=== PATIENT | female | born 1980 | race Caucasian/White ===

== ENCOUNTER → 2016-07-28 | Outpatient (CLI) | payer BC ==
[2016-07-28 11:34] LABS: BASOPHILS # (AUTO) 0.02 10*3/UL; BASOPHILS % (AUTO) 0.3 % (0-1); HEMATOCRIT 42.3 % (37.0-47.0); IMM GRAN % (AUTO) 0.1 % (0-5); IMM GRAN# (AUTO) 0.01 10*3/UL; LYMPHOCYTES # (AUTO) 2.16 10*3/uL; LYMPHOCYTES % (AUTO) 27.5 % (10-50); MEAN CORPUSCULAR HEMOGLOBIN 28.8 PG (27-31); MEAN CORPUSCULAR HGB CONC 33.1 g/dL (33-37); MEAN PLATELET VOLUME 10.8 FL (7.4-12.2); MONOCYTES # (AUTO) 0.76 10*3/UL (0.3-0.8); MONOCYTES % (AUTO) 9.7 % (5-15); NEUTROPHILS # (AUTO) 4.82 10*3/UL; NEUTROPHILS % (AUTO) 61.4 % (50-80); RDW COEFFICIENT OF VARIATION 12.6 % (11.5-14.5); RED BLOOD COUNT 4.86 10^6/uL (4.20-5.40); WHITE BLOOD COUNT 7.85 10^3/uL (4.8-10.8)
[2016-07-28 11:35] LABS: PLATELET MORPHOLOGY COMMENT NORMAL MORPHOLOGY (NORM); PRENATAL QUESTION YES (Y)
[2016-07-28 12:00] LABS: HIV ANTIBODY NEGATIVE (N); HIV-1 P24 ANTIGEN NEGATIVE (N)
[2016-07-30 07:13] LABS: RUBELLA IGG INDEX 1.2 (()); SYPHILIS IGG WITH REFLEX Negative (Negative)
[2016-07-30 07:14] LABS: HEP B SURFACE AG Negative (Negative)
== END ==
LOC: MOB LAB 10:48
PROVIDERS: ATTEND Student in an Organized Health Care Education/Training Program
DX: Z34.81 Encounter for supervision of other normal pregnancy, first trimester (principal)
CPT/HCPCS: 36415; 80081; 86900; 86901; 87088; 87491; 87591

== ENCOUNTER → 2016-08-02 | Outpatient (CLI) | payer BC ==
--- NOTE | 2016-08-02 14:11 | DI ---
History: First trimester evaluation. Procedure performed transvaginally using a high frequency transducer. Findings: A single living intrauterine is identified in variable position due to early gest ational age. Amniotic fluid volume appears adequate. Regarding gestational landmarks, all appear in f airly close agreement including gestational sac diameter, and embryonic pole and yolk sac. Heart rate is 134 beats per minute. Gestational sac diameter is 3.1 cm, 8 weeks 3 days, yolk sac is 3 mm in diameter and the crown-rump l ength is 1.4 cm, 7 week 5 days. Ovaries appear normal. Impression: Single living intrauterine at 7 weeks 5 days by crown-rump length, most accurat e marker. GA by dates 8 weeks 5 days. EDC is 03/09/17
== END ==
LOC: US 09:49
PROVIDERS: ATTEND Student in an Organized Health Care Education/Training Program
DX: Z36 Encounter for antenatal screening of mother (principal); Z34.81 Encounter for supervision of other normal pregnancy, first trimester
CPT/HCPCS: 76817

== ENCOUNTER → 2016-11-01 | Outpatient (CLI) | payer BC ==
--- NOTE | 2016-11-01 10:34 | DI ---
OBSTETRICAL ULTRASOUND, 11/01/2016 8:51 AM: Clinical History: Antepartum screening. Previous Exam: 08/02/2016. ADJUSTED DATE FROM EARLY OBUS: 06/09/2016. There is a single live IUP currently in breech presentation. Amnionic fluid content is normal. activity is observed as follows: Cardiac, extremity, and respiratory. The placenta is posterior corpu s and Grade 1. heart rate is 140 beats/minute and regular. There is a 3 vessel cord. Cord Doppl er ultrasound was performed and this shows diastolic flow with systolic/diastolic ratios of 5.2 and 4 .9, and these values are normal for this stage of . The RVOT, LVOT and 4 chamber heart view are normal. The aortic arch and descending aorta are normal. Views of the spine, face, and kidn eys are unremarkable. BPD, HC, AC, and FL measurements are 52 mm, 196 mm, 169 mm, and 35 mm, respecti vely. These measurements correspond to EGA values of 21 weeks 6 days, 21 weeks 6 days, 22 weeks 0 day s and 21 weeks 1 day, respectively. Composite EGA is 21 weeks 5 days. The US EDC is 03/09/2017. EDC by adjusted LMP is 03/16/2017. Readin. Single live fetus with breech presentation and normal amniotic fluid content. Placenta is posteri or corpus and grade 1. 2. The composite EGA is 21 weeks 5 days with an ultrasound EDC of 03/09/2017. EDC by the chest at LMP date of 06/09/2016 would be 03/16/2017. 3. anatomic survey is normal. The technologist did perform cord Doppler ultrasound because of the short femur length and cord Doppler ultrasound measurements are normal for this stage of pregnanc y.
== END ==
LOC: US 08:46
PROVIDERS: ATTEND Student in an Organized Health Care Education/Training Program
DX: Z36 Encounter for antenatal screening of mother (principal); Z3A.20 20 weeks gestation of pregnancy
CPT/HCPCS: 76805

== ENCOUNTER → 2016-11-27 | Outpatient (CLI) | payer BC ==
[2016-11-27 15:00] LABS: HEMATOCRIT 38.1 % (37.0-47.0); HEMOGLOBIN 12.4 g/dL (12.0-16.0); MEAN CORPUSCULAR HEMOGLOBIN 29.2 PG (27-31); MEAN CORPUSCULAR HGB CONC 32.5 g/dL (33-37); MEAN CORPUSCULAR VOLUME 89.9 FL (81-99); MEAN PLATELET VOLUME 11.1 FL (7.4-12.2); RED BLOOD COUNT 4.24 10^6/uL (4.20-5.40)
== END ==
LOC: LAB 08:40
PROVIDERS: ATTEND Student in an Organized Health Care Education/Training Program
DX: Z36 Encounter for antenatal screening of mother (principal); Z3A.25 25 weeks gestation of pregnancy
CPT/HCPCS: 36415; 82950; 85027

== ENCOUNTER → 2017-02-12 | Outpatient (CLI) | payer BC | LOC: MOB LAB 15:37 | PROVIDERS: ATTEND Obstetrics & Gynecology | DX: Z36 Encounter for antenatal screening of mother (principal); Z3A.36 36 weeks gestation of pregnancy | CPT/HCPCS: 87150 ==

== ENCOUNTER → 2017-02-28 | Outpatient (CLI) | payer BC | LOC: MOB LAB 09:25 | PROVIDERS: ATTEND Student in an Organized Health Care Education/Training Program | DX: O12.13 Gestational proteinuria, third trimester (principal); Z3A.38 38 weeks gestation of pregnancy | CPT/HCPCS: 82565; 84156 ==

== ENCOUNTER 2017-03-09 21:55 | Inpatient (IN) | payer BC ==
[2017-03-09] MEDS ORDERED: ONDANSETRON 4 MG/2 ML VIAL ONE (21:58)
[2017-03-09] MEDS: ONDANSETRON 4 MG/2 ML VIAL IVP PRN (22:07)
[2017-03-09] MEDS ORDERED: fentaNYL Inj 100 MCG/2 ML VIAL ONE (22:09)
[2017-03-09] MEDS ORDERED: Lactated Ringers 1,000 ML PRIMARY IV ONE ×2 (22:14→22:31)
[2017-03-09] MEDS ORDERED: Oxytocin 20 Units + LR 1,000 ML IV ONE (22:14)
[2017-03-09] MEDS ORDERED: CITRIC ACID/SODIUM CITRATE 30 ML CUP PO PRN (22:16)
[2017-03-09] MEDS ORDERED: Nalbuphine Inj 20 MG/ML Ampule IVP PRN (22:16)
[2017-03-09] MEDS ORDERED: LIDOCAINE W/ SODIUM BICARB 0.5 ML SYR SUBD PRN (22:16)
[2017-03-09] MEDS ORDERED: BUTORPHANOL TARTRATE 2 MG/1 ML VIAL IVP PRN (22:16)
[2017-03-09] MEDS ORDERED: OXYTOCIN 10 UNIT/1 ML IM PRN (22:16)
[2017-03-09] MEDS ORDERED: METHYLERGONOVINE MALEATE 0.2 MG/1 ML VIAL IM PRN (22:16)
[2017-03-09] MEDS ORDERED: NALOXONE 0.4 MG/1 ML VIAL IVP PRN (22:16)
[2017-03-09] MEDS ORDERED: Lidocaine 1% 10 MG/ML - 20 ML VIAL SUBCUT PRN (22:16)
[2017-03-09] MEDS ORDERED: MISOPROSTOL 200 MCG TABLET RECTAL PRN (22:16)
[2017-03-09] MEDS ORDERED: Naloxone Inj 0.01 MG in Normal Saline Flush 1 ML IVP PRN (22:16)
[2017-03-09] MEDS ORDERED: CALCIUM CARBONATE 500 MG (TUMS) CHEWABLE TABLET PO PRN (22:16)
[2017-03-09] MEDS ORDERED: Metoclopramide Inj 10 MG/2 ML VIAL IV PRN (22:16)
[2017-03-09] MEDS ORDERED: TERBUTALINE SULFATE 1 MG/1 ML SDV SUBCUT PRN (22:16)
[2017-03-09] MEDS ORDERED: diphenhydrAMINE 50 MG/1 ML VIAL IVP PRN (22:16)
[2017-03-09] MEDS ORDERED: Famotidine Inj 20 MG in Normal Saline Flush 10 ML IVP PRN ×4 (22:16)
[2017-03-09] MEDS ORDERED: CefOXitin Inj 2 GM in Sodium Chloride 0.9% 100 ML IV PRN (22:16)
[2017-03-09] MEDS ORDERED: Carboprost Inj 250 MCG/ML AMP IM PRN (22:16)
[2017-03-09] MEDS ORDERED: fentaNYL Inj 100 MCG/2 ML VIAL IV PRN (22:16)
[2017-03-09] MEDS ORDERED: NORMAL SALINE 10 ML SYRINGE FLUSH IVP PRN (22:16)
[2017-03-09] MEDS ORDERED: ePHEDrine Inj 5 MG in Normal Saline Flush 1 ML IVP PRN (22:16)
[2017-03-09] MEDS ORDERED: Phenylephrine Inj 50 MCG in Normal Saline Flush 0.5 ML IVP PRN (22:16)
[2017-03-09 22:22] LABS: HEMATOCRIT 37.6 % (37.0-47.0); HEMOGLOBIN 12.9 g/dL (12.0-16.0); MEAN CORPUSCULAR HEMOGLOBIN 29.2 PG (27-31); MEAN CORPUSCULAR HGB CONC 34.3 g/dL (33-37); MEAN CORPUSCULAR VOLUME 85.1 FL (81-99); MEAN PLATELET VOLUME 11.1 FL (7.4-12.2); RED BLOOD COUNT 4.42 10^6/uL (4.20-5.40)
[2017-03-09] MEDS: Lactated Ringers-OB Dept 1,000 ML PRIMARY IV SCH ×2 (22:22→22:41)
[2017-03-09] MEDS ORDERED: Oxytocin 20 Units + LR 1,000 ML IV SCH (22:30)
[2017-03-09] MEDS ORDERED: Sodium Chloride 0.9% vial 10 ML ONE (23:03)
--- NOTE | 2017-03-09 23:21 | CRNA.PROCE ---
Central Neuraxis Block [facility] - - Safety Measures: Site Verified - - Type of Block: Subarachnoid (Planned epidural. No palpable structures that are normal. Skin prepped with betadine times three. Skin and ligaments infiltrated with local . 18 hustead epidural needle set tap. used that to do intrathecal with 5 mg 0.75% bupiviacne mixed with epi 1:1000 syringe rinse and 3 ml pf sodium chloride. Pt reports much reduced labor discomfort.) Reason for Block: Analgesia Moniters Used During Block: SPO2, NIBP Skin Prep Used: Betadine (Times 3) Skin Infiltration - Enter Amount Used in Comment Field: 1% Xylocaine (mL): Yes ( 1.5 ml) Spinal Needle Used: 18 Hustead 80 mm Local Anesthetic - Enter Amount Used in Comment Field: 0.75 % Bupivacaine with Dextrose (ml): Yes (0.65 ml) Bioclusive Dressing Applied: No
--- NOTE | 2017-03-09 23:21 | OB.PROGRES ---
Interval History: 36 yo at 40 0/7 weeks gestation by LMP and 1st tri u/s who presented tonight with regular contractions. Contractions started around 1500 today and have increased in severity and frequency. Patient denies decreased FM, LOF or VB. She has some nausea with emesis prior to arrival. uncomplicated. AMA. Cell free DNA test normal. Has been measuring size < dates based on FH but has declined ultrasonography. Past OB Hx - Delivered at 41 weeks via vacuum assisted vaginal delivery with mediolateral episiotomy, 7lb 11 oz boy. notable for abnormal quad screen. PMH - scoliosis PSH - Spinal fusion, calos placement and removal for scoliosis, Lasik FH - Mo and Fa - DM, Fa - bipolar d/o, PGM and PGF - CAD SH - Never smoker, no etoh or illicit drug use Objective - Cervical Exam Cervical Exam: /0 [place]: q2-5 - difficult to nut picker Heart Rate: baseline 135, mod gayla, +accels, no decels Heart Rate Interpretation Category: Category I - Labs CBC and BMP: 03/09/17 22:22 Labs - Last 24 Hours: Laboratory Results 03/09/17 Range/Units 22:22 WBC 13.47 H (4.8-10.8) 10^3/uL RBC 4.42 (4.20-5.40) 10^6/uL Hgb 12.9 (12.0-16.0) g/dL Hct 37.6 (37.0-47.0) % MCV 85.1 (81-99) FL MCH 29.2 (27-31) PG MCHC 34.3 (33-37) g/dL RDW Std Deviation 42.1 (39-50) fL RDW Coeff of Gayla 13.6 (11.5-14.5) % Plt Count 234 (140-350) 10*3/uL MPV 11.1 (7.4-12.2) FL Assessment and Plan - Patient Problems (1) Term Current Visit: Yes Status: AcuteSupport Text: 36 yo at 40 0/7 weeks gestation in active labor -Admit with expectant management -Unable to obtain epidural 2/2 spinal anatomy, intrathecal placed -GBS negative -Rubella immune -Continue close observation
[2017-03-10] MEDS: ONDANSETRON 4 MG/2 ML VIAL IVP PRN (00:05)
--- NOTE | 2017-03-10 00:23 | OB.PROGRES ---
Interval History: Intrathecal is wearing off, she is starting to feel more pressure and pain. Bladder emptied with straight cath - 100 cc, concentrated urine Objective - Cervical Exam Cervical Exam: /0 [place]: q3-4 Heart Rate: baseline 130, mod gayla, +accels, variable decels - Labs CBC and BMP: 03/09/17 22:22 Labs - Last 24 Hours: Laboratory Results 03/09/17 Range/Units 22:22 WBC 13.47 H (4.8-10.8) 10^3/uL RBC 4.42 (4.20-5.40) 10^6/uL Hgb 12.9 (12.0-16.0) g/dL Hct 37.6 (37.0-47.0) % MCV 85.1 (81-99) FL MCH 29.2 (27-31) PG MCHC 34.3 (33-37) g/dL RDW Std Deviation 42.1 (39-50) fL RDW Coeff of Agyla 13.6 (11.5-14.5) % Plt Count 234 (140-350) 10*3/uL MPV 11.1 (7.4-12.2) FL Assessment and Plan - Patient Problems (1) Term Current Visit: Yes Status: AcuteSupport Text: 36 yo at 40 1/7 weeks gestation, nearly complete -continue to labor down -close observation
[2017-03-10] MEDS ORDERED: HYDROcodone-APAP 5 MG -325 MG TABLET PO PRN (02:05)
[2017-03-10] MEDS ORDERED: diphenhydrAMINE 25 MG CAPSULE PO PRN (02:05)
[2017-03-10] MEDS ORDERED: Carboprost Inj 250 MCG/ML AMP IM PRN (02:05)
[2017-03-10] MEDS ORDERED: METHYLERGONOVINE MALEATE 0.2 MG/1 ML VIAL IM PRN (02:05)
[2017-03-10] MEDS ORDERED: DIPH,PERTUSS,TET(ADACEL) VAC/PF 0.5 ML (Tdap) IM ONE (02:05)
[2017-03-10] MEDS ORDERED: ONDANSETRON 4 MG/2 ML VIAL IVP PRN (02:05)
[2017-03-10] MEDS ORDERED: MISOPROSTOL 200 MCG TABLET RECTAL ONE (02:05)
[2017-03-10] MEDS ORDERED: Methylergonovine Tab 0.2 MG TAB PO PRN (02:05)
[2017-03-10] MEDS ORDERED: Nalbuphine Inj 20 MG/ML Ampule IVP PRN (02:05)
[2017-03-10] MEDS ORDERED: LANOLIN HPA 40 GM TUBE TOPICAL PRN (02:05)
[2017-03-10] MEDS ORDERED: OXYTOCIN 10 UNIT/1 ML IM ONE (02:05)
[2017-03-10] MEDS ORDERED: NORMAL SALINE 10 ML SYRINGE FLUSH IVP PRN (02:05)
[2017-03-10] MEDS ORDERED: Oxytocin 20 Units + LR 1,000 ML IV SCH (02:05)
[2017-03-10] MEDS ORDERED: ACETAMINOPHEN 325 MG TABLET PO PRN ×2 (02:05→18:22)
[2017-03-10] MEDS ORDERED: ceFAZolin Inj 2gm (Premix) 2 GM in Dextrose 1 BAG IV ONE (02:05)
[2017-03-10] MEDS ORDERED: CALCIUM CARBONATE 500 MG (TUMS) CHEWABLE TABLET PO PRN (02:05)
[2017-03-10] MEDS ORDERED: BENZOCAINE/MENTHOL SPRAY 56 GM BOTTLE TOPICAL PRN (02:05)
[2017-03-10] MEDS ORDERED: diphenhydrAMINE 50 MG/1 ML VIAL IVP PRN (02:05)
[2017-03-10] MEDS ORDERED: GLYCERIN/WITCH HAZEL 1 BOX TOPICAL PRN (02:05)
[2017-03-10] MEDS ORDERED: Ondansetron ODT Tab 4 MG TAB PO PRN (02:05)
--- NOTE | 2017-03-10 02:12 | OB.DEL.SUM ---
Delivery Note Delivery Summary: 36 yo G2 now P2 was admitted for active labor, now 40 1/7 weeks gestation. Patient progressed on her own to complete. She received an intrathecal for pain , her anatomy with her scoliosis and fusion made an epidural too difficult. She had an anterior lip which was reduced as the patient began pushing. After approximately 30 mins of pushing she delivered via normal vaginal delivery a TAGA female in ALTAF position over an intact perineum. A nuchal cord x1 was easily reduced. Cord clamping was delayed approx 30 seconds. The cord was doubly clamped then cut by the FOB. Her anterior cervix was noted to be quite edematous and prolapsing to the introitus. After 20 mins I used new sterile gloves to partially assist manually with delivery of the placenta as any traction seemed to cause the anterior lip to descend more. The placenta was noted to be intact, with 3-vessel cord but had a rather large accessory lobe. The patients vaginal vault was inspected and she was noted to have a L periurethral lac which was hemostatic and did not require repair. The patient's cervix was examined and the anterior lip was quite edematous and bruised but no lacerations noted. EBL 300 cc. Mom and baby tolerated delivery well. Apgars 9, 9. I will go ahead and give 2 grams of cefazolin as a partial manual extraction was done. Mom has a mild allergy to PCN - rash on arms. - Patient Problems (1) Term Current Visit: Yes Status: Acute (2) Normal vaginal delivery Current Visit: Yes Status: Acute
[2017-03-10] MEDS ORDERED: Sodium Chloride 0.9% 50 ML IV ONE (02:42)
[2017-03-10] MEDS: IBUPROFEN 800 MG TABLET PO PRN ×2 (02:46→13:14)
[2017-03-10] MEDS ORDERED: DOCUSATE 100 MG CAPSULE PO SCH (09:00)
--- NOTE | 2017-03-10 16:41 | DCSUMMARY ---
Hospitalization Summary Admit Date: 03/09/17 Discharge Date: 03/10/19 Primary Diagnosis:: s/p Delivery Type: Vaginal Hospital Course: 36 yo G2 now P2 admitted in active labor. uncomplicated. She did have NIPT given AMA, low risk for trisomies. Unable to obtain epidural 2/2 scoliosis , intrathecal done for pain relief but did moser off somewhat by time of delivery. Labor complicated by a persistent anterior lip, which was manually reduced. A partial manual extraction was done for delivery of the placenta. She did receive a dose of ancef for ppx. Her anterior cervix was quite edematous and somewhat prolapsed after delivery, but normal on exam today. Patient is doing very well post . Given h/o pp depression, and adverse reaction to sertraline, will go ahead and start lexapro now. / Postop Complications: see above Complications: none apparent Exam - Vitals Vital Signs: Vital Signs Temperature 98.1 F Temperature Source Oral Pulse Rate [Pulse Oximeter] 53 Pulse Rate 47 Respiratory Rate 18 Blood Pressure [Right Arm] 108/51 Blood Pressure 103/57 Pulse Ox 98 Oxygen Delivery Method Room Air Height 5 ft 5 in Weight 159 lb - General General Appearance: POSITIVE: No Acute Distress, Cooperative, Mild Distress - Head Head Exam: POSITIVE: Normal Inspection - Eye Eye Exam: POSITIVE: Normal Appearance - Respiratory Respiratory Exam: POSITIVE: Clear to Auscultation - Bilaterally, Breathing Non Labored - Cardiovascular Cardiovascular Exam: POSITIVE: RRR - GI/Abdominal GI/Abdominal Exam: POSITIVE: Normal Bowel Sounds, Non Tender Additional GI/Abdominal Exam Details: Uterus firm at umbilicus - External Exam: POSITIVE: Normal External Inspection, Laceration(s) (L periurethral skid louie). NEGATIVE: Swelling, Erythema - Extremities Extremities Exam: POSITIVE: No Edema Present - Integumentary Integumentary Exam: POSITIVE: Normal Color, Warm Patient Problems - Patient Problem List (1) Term Current Visit: Yes Status: Acute (2) Normal vaginal delivery Current Visit: Yes Status: AcuteSupport Text: 36 yo G2 now P2 delivered at 40 1/7 weeks gestation Doing well - pain controlled with motrin - Rx for 800 mg motrin sent in to be taken q8h prn Breast feeding, latching going well Will go ahead and start lexapro given h/o pp depression F/u with 4-8 weeks pp, will want a mirena for pp contraception Continue PNV, yee [place]
[2017-03-10 17:17] VITALS: TEMP 97.8
[2017-03-10 18:50] LABS: HEMATOCRIT 32.3 % (37.0-47.0); HEMOGLOBIN 11.1 g/dL (12.0-16.0); MEAN CORPUSCULAR HEMOGLOBIN 29.9 PG (27-31); MEAN CORPUSCULAR HGB CONC 34.4 g/dL (33-37); MEAN CORPUSCULAR VOLUME 87.1 FL (81-99); MEAN PLATELET VOLUME 11.4 FL (7.4-12.2); RED BLOOD COUNT 3.71 10^6/uL (4.20-5.40)
[2017-03-10 18:51] VITALS: RESP 16
[2017-03-11] MEDS ORDERED: Prenatal Multivitamin Tab 1 TAB TAB PO SCH (09:00)
== END 2017-03-10 20:10 | disposition home or self-care (01) | DRG 775 ==
LOC: OBIP 21:55
PROVIDERS: ADMIT Student in an Organized Health Care Education/Training Program; ATTEND Student in an Organized Health Care Education/Training Program
PROC: 10E0XZZ Delivery of Products of Conception, External Approach (ICD-10-PCS; principal; 2017-03-09)
DX: O71.82 Other specified trauma to perineum and vulva (principal); Z3A.40 40 weeks gestation of pregnancy; Z37.0 Single live birth
CPT/HCPCS: 81003; 85027; A4216; J0690; J2210; J2405; J3010; J7120

== ENCOUNTER 2017-03-14 10:30 | Day surgery (SDC) | payer BC ==
[~2017-03-14 10:30] MED LIST: LIDOCAINE W/ SODIUM BICARB 0.5 ML SYR ONE; Lactated Ringers 1,000 ML PRIMARY IV ONE
[2017-03-14 11:28] LABS: HEMATOCRIT 36.8 % (37.0-47.0); HEMOGLOBIN 11.9 g/dL (12.0-16.0); MEAN CORPUSCULAR HEMOGLOBIN 28.3 PG (27-31); MEAN CORPUSCULAR HGB CONC 32.3 g/dL (33-37); MEAN CORPUSCULAR VOLUME 87.4 FL (81-99); MEAN PLATELET VOLUME 10.2 FL (7.4-12.2); RED BLOOD COUNT 4.21 10^6/uL (4.20-5.40)
[2017-03-14 11:48] VITALS: RESP 14
--- NOTE | 2017-03-14 11:53 | PDOC(PROG) ---
Patient Problems - Patient Problem List (1) Spinal Headache Current Visit: Yes Status: Acute Comment: Patient underwent epidural blood patch
[2017-03-14] MEDS ORDERED: SODIUM BENZOATE ONE (12:01)
[2017-03-14] MEDS ORDERED: CAFFEINE ONE (12:01)
[2017-03-14] MEDS ORDERED: Sodium Chloride 0.9% 1,000 ML ONE (12:02)
[2017-03-14 14:08] VITALS: TEMP 97.3
== END 2017-03-14 13:48 | disposition home or self-care (01) ==
LOC: SDSC 10:30
PROVIDERS: ATTEND Pain Medicine Interventional Pain Medicine
DX: T88.59XA Other complications of anesthesia, initial encounter (principal)
CPT/HCPCS: 76000; 85027; J7030; J7120